=== PATIENT | male | born 1955 | race Hispanic/Latino ===

== ENCOUNTER 2021-02-04 03:39 | Observation (INO) | payer OTHER ==
[~2021-02-04] VITALS: Ht 180.3 cm; Wt 97.8 kg
[2021-02-04] MEDS ORDERED: MORPHINE 4 MG SYG ONE (04:00)
[2021-02-04] MEDS ORDERED: KETOROLAC 15MG/ML VIAL (15MG/ML) IV ONE (04:00)
[2021-02-04] MEDS ORDERED: ONDANSETRON 4MG INJ ONE (04:00)
[2021-02-04] MEDS ORDERED: KETOROLAC 15MG/ML VIAL (15MG/ML) ONE ×2 (04:00→17:08)
[2021-02-04] MEDS ORDERED: MORPHINE 4 MG SYG IV ONE (04:00)
[2021-02-04] MEDS ORDERED: ONDANSETRON 4MG INJ IVP ONE (04:00)
[2021-02-04 04:05] LABS: BASOPHILS % (AUTO) 0.2 % (0.0-5.0); EOSINOPHILS % (AUTO) 1.8 % (0.0-8.0); HEMATOCRIT 39.6 % (42-54); LYMPHOCYTES % (AUTO) 17.4 % (21.0-51.0); MEAN CORPUSCULAR HEMOGLOBIN 29.5 pg (27.0-33.0); MEAN CORPUSCULAR HGB CONC 33.8 g/dL (32.0-36.0); MONOCYTES % (AUTO) 6.6 % (3.0-13.0); NEUTROPHILS % (AUTO) 73.5 % (40.0-77.0); PLATELET COUNT (AUTO) 200 K/uL (130-400); RED BLOOD CELL COUNT(AUTO) 4.55 MIL/uL (4.50-6.20); WHITE BLOOD COUNT (AUTO) 9.9 K/uL (4.8-10.8)
[2021-02-04 04:14] LABS: CREATININE 2.4 mg/dL (0.5-1.5); POTASSIUM 3.8 mmol/L (3.5-5.1)
[2021-02-04 04:16] LABS: APPEARANCE,URINE Clear (CLEAR); BILIRUBIN,URINE Negative (NEGATIVE); COLOR,URINE Yellow (YELLOW); GLUCOSE, URINE (UA) Negative (NEGATIVE); KETONES,URINE Negative (NEGATIVE); LEUKOCYTE ESTERASE ,URINE Large (NEGATIVE); NITRATE,URINE Negative (NEGATIVE); OCCULT BLOOD,URINE Moderate (NEGATIVE); PH,URINE 5.5 (5.0-8.0); PROTEIN,URINE Negative (NEGATIVE); UROBILINOGEN,URINE 0.2 mg/dL (0.2-1.0)
[2021-02-04 04:19] LABS: ALBUMIN 3.3 g/dL (3.5-5.0); BILIRUBIN,TOTAL 0.4 mg/dL (0.2-1.0)
[2021-02-04 04:40] LABS: BACTERIA,URINE Few /HPF (None Seen); SQUAMOUS EPITHELIAL CELL,UR Few /HPF (0-2)
[2021-02-04] MEDS ORDERED: CEFTRIAXONE 2GM VIAL IVP ONE (05:30)
[2021-02-04] MEDS ORDERED: 0.9%NACL 1000ML 1,000 ML IV ONE (06:00)
[2021-02-04] MEDS ORDERED: LISI20TA24 PO (06:26)
[2021-02-04] MEDS ORDERED: CLOP75TA32 PO (06:26)
[2021-02-04] MEDS ORDERED: METO25TA6 PO (06:26)
[2021-02-04] MEDS ORDERED: ATOR40TA71 PO (06:26)
[2021-02-04] MEDS ORDERED: TAMS-1 PO (06:26)
[2021-02-04] MEDS ORDERED: CEFTRIAXONE 1G VIAL IV SCH (07:30)
[2021-02-04] MEDS: INSULIN HUMULIN R 100 UNIT/ML 3ML SQ SCH ×4 (07:30→20:42)
[2021-02-04] MEDS ORDERED: ONDANSETRON 4MG INJ IV PRN (07:30)
[2021-02-04] MEDS ORDERED: ACETAMINOPHEN 325 MG TAB PO PRN ×2 (07:30)
[2021-02-04] MEDS ORDERED: LACTULOSE 20 GM/30 ML UDCUP PO PRN (07:30)
[2021-02-04] MEDS: 0.9%NACL 1000ML 1,000 ML IV SCH ×2 (07:33→17:30)
[2021-02-04] MEDS: HEPARIN 5,000 UNIT VIAL SQ SCH ×2 (07:38→19:41)
[2021-02-04] MEDS: FAMOTIDINE 20MG TAB PO SCH (07:42)
[2021-02-04] MEDS: CLOPIDOGREL 75MG TAB PO SCH (09:19)
[2021-02-04] MEDS: METOPROLOL TARTRATE 25 MG TAB PO SCH ×2 (09:19→19:40)
[2021-02-04] MEDS: MEROPENEM 1 GM VIAL IVP SCH ×2 (09:19→16:50)
[2021-02-04] MEDS: TAMSULOSIN HCL 0.4 MG CAP.ER.24H PO SCH (09:19)
[2021-02-04] MEDS: ATORVASTATIN 40 MG TABLET PO SCH (09:19)
[2021-02-04 11:55] VITALS: BP 158/70
[2021-02-04 12:40] LABS: CREATININE,URINE RANDOM 75 mg/dL (30-135); SODIUM,URINE RANDOM 94 mmol/l (40-220)
[2021-02-04 15:47] VITALS: BP 141/56
[2021-02-04] MEDS ORDERED: MORPHINE 4 MG SYG IV PRN (17:30)
[2021-02-04] MEDS ORDERED: KETOROLAC 15MG/ML VIAL (15MG/ML) IV PRN (17:30)
[2021-02-04 20:00] VITALS: BP 154/70
[2021-02-04 23:45] VITALS: BP 156/78
[2021-02-05] MEDS: MEROPENEM 1 GM VIAL IVP SCH ×3 (01:13→16:45)
[2021-02-05 04:00] VITALS: BP 150/67
[2021-02-05] MEDS: 0.9%NACL 1000ML 1,000 ML IV SCH ×2 (04:10→13:30)
[2021-02-05 05:14] LABS: BASOPHILS % (AUTO) 0.3 % (0.0-5.0); EOSINOPHILS % (AUTO) 2.7 % (0.0-8.0); HEMATOCRIT 40.4 % (42-54); LYMPHOCYTES % (AUTO) 22.9 % (21.0-51.0); MEAN CORPUSCULAR HGB CONC 32.9 g/dL (32.0-36.0); MONOCYTES % (AUTO) 7.4 % (3.0-13.0); NEUTROPHILS % (AUTO) 66.1 % (40.0-77.0); PLATELET COUNT (AUTO) 211 K/uL (130-400); RED BLOOD CELL COUNT(AUTO) 4.59 MIL/uL (4.50-6.20); RED CELL DISTRIBUTION WIDTH 13.9 % (11.0-15.5); WHITE BLOOD COUNT (AUTO) 6.9 K/uL (4.8-10.8)
[2021-02-05 05:18] LABS: CREATININE 1.5 mg/dL (0.5-1.5)
[2021-02-05] MEDS: HEPARIN 5,000 UNIT VIAL SQ SCH ×2 (07:30→19:14)
[2021-02-05 08:00] VITALS: BP 167/89
[2021-02-05] MEDS: CLOPIDOGREL 75MG TAB PO SCH (08:45)
[2021-02-05] MEDS: FAMOTIDINE 20MG TAB PO SCH (08:45)
[2021-02-05] MEDS: TAMSULOSIN HCL 0.4 MG CAP.ER.24H PO SCH (08:45)
[2021-02-05] MEDS: METOPROLOL TARTRATE 25 MG TAB PO SCH ×2 (08:45→20:41)
[2021-02-05] MEDS: ATORVASTATIN 40 MG TABLET PO SCH (08:46)
[2021-02-05] MEDS: INSULIN HUMULIN R 100 UNIT/ML 3ML SQ SCH ×3 (11:30→20:26)
[2021-02-05 11:50] VITALS: BP 150/66
[2021-02-05 16:00] VITALS: BP 111/59
[2021-02-05 20:00] VITALS: BP 152/64
[2021-02-06] VITALS: BP 152/83
[2021-02-06] MEDS: 0.9%NACL 1000ML 1,000 ML IV SCH ×2 (00:11→08:43)
[2021-02-06] MEDS: MEROPENEM 1 GM VIAL IVP SCH ×2 (01:00→08:43)
[2021-02-06 04:00] VITALS: BP 160/86
[2021-02-06 05:06] LABS: HEMATOCRIT 39.7 % (42-54); MEAN CORPUSCULAR HEMOGLOBIN 29.1 pg (27.0-33.0); MEAN CORPUSCULAR HGB CONC 32.7 g/dL (32.0-36.0); MEAN CORPUSCULAR VOLUME 88.8 fL (79-99); PLATELET COUNT (AUTO) 196 K/uL (130-400); RED BLOOD CELL COUNT(AUTO) 4.47 MIL/uL (4.50-6.20); RED CELL DISTRIBUTION WIDTH 13.7 % (11.0-15.5); WHITE BLOOD COUNT (AUTO) 7.1 K/uL (4.8-10.8)
[2021-02-06 05:32] LABS: CREATININE 1.2 mg/dL (0.5-1.5); POTASSIUM 3.9 mmol/L (3.5-5.1)
[2021-02-06 05:54] LABS: EOSINOPHILS % (MANUAL) 4 % (1-6); LYMPHOCYTES % (MANUAL) 21 % (22-44); MAN.DIFF COMMENT-IMPRESSION MANUAL DIFFERENTIAL; MONOCYTES % (MANUAL) 5 % (2-9); SEGMENTED NEUTROPHILS % 70 % (40-70)
[2021-02-06 05:55] LABS: PLATELET MORPHOLOGY COMMENT ADEQUATE
[2021-02-06] MEDS: INSULIN HUMULIN R 100 UNIT/ML 3ML SQ SCH ×2 (06:07→11:30)
[2021-02-06] MEDS: HEPARIN 5,000 UNIT VIAL SQ SCH (06:45)
[2021-02-06 08:13] VITALS: BP 168/74
[2021-02-06] MEDS: TAMSULOSIN HCL 0.4 MG CAP.ER.24H PO SCH (08:41)
[2021-02-06] MEDS: ATORVASTATIN 40 MG TABLET PO SCH (08:42)
[2021-02-06] MEDS: FAMOTIDINE 20MG TAB PO SCH (08:42)
[2021-02-06] MEDS: METOPROLOL TARTRATE 25 MG TAB PO SCH (08:42)
[2021-02-06] MEDS: CLOPIDOGREL 75MG TAB PO SCH (08:42)
[2021-02-06 11:27] VITALS: BP 167/78
[2021-02-06] MEDS ORDERED: CEPH500B PO (12:41)
[2021-02-06] MEDS ORDERED: TRAM50TA4 PO (12:41)
== END 2021-02-06 18:00 | disposition home or self-care (01) ==
LOC: EDH 03:39 → EDHIP 07:14 → 3CH 10:00
PROVIDERS: ADMIT Internal Medicine; ATTEND Internal Medicine
DX: N39.0 Urinary tract infection, site not specified (principal); N12 Tubulo-interstitial nephritis, not specified as acute or chronic; N17.9 Acute kidney failure, unspecified; R11.2 Nausea with vomiting, unspecified; I10 Essential (primary) hypertension; I25.10 Atherosclerotic heart disease of native coronary artery without angina pectoris; E78.00 Pure hypercholesterolemia, unspecified; E78.5 Hyperlipidemia, unspecified; E11.9 Type 2 diabetes mellitus without complications; Z79.899 Other long term (current) drug therapy; Z95.1 Presence of aortocoronary bypass graft
CPT/HCPCS: 36415; 74176; 76770; 80048; 80053; 81001; 82550; 82570; 82948; 83690; 83874; 84300; 84484; 85025; 87088; 93005; 96361; 96372; 96374; 96375; 96376; G0378; J0696; J1644; J1885; J2185; J2270; J2405; J7030